=== PATIENT | male | born 1960 | race Caucasian/White ===

== ENCOUNTER 2023-02-19 11:15 | Outpatient (REF) | payer OTHER, SELFPAY ==
[2023-02-19 14:13] LABS: Hematocrit 45.3 % (42.0-52.0); Mean Corpuscular HGB Conc 33.1 g/dl (31.0-36.0); Mean Corpuscular Hemoglobin 30.3 pg (27.0-33.0); Mean Corpuscular Volume 91.5 fL (80.0-98.0); Mean Platelet Volume 9.3 fL (9.4-12.4); Platelet Count 279 X10*3/uL (160-400); Red Blood Count 4.95 X10*6/uL (4.60-5.80); Red Cell Distribution Width 13.2 % (11.0-16.0); White Blood Count 6.1 X10*3/uL (4.8-10.8)
[2023-02-19 14:31] LABS: Alanine Aminotransferase 14 U/L (0-40); Albumin Level 4.2 g/dL (3.5-5.0); Alkaline Phosphatase 57 U/L (39-117); Anion Gap 10 (12-20); Aspartate Amino Transferase 22 U/L (5-37); Bilirubin Total 2.2 mg/dL (0.0-1.0); Blood Urea Nitrogen 16 mg/dL (9-16); Calcium 8.9 mg/dL (8.4-10.2); Carbon Dioxide 29 mmol/L (22-29); Chloride 104 mmol/L (96-108); Cholesterol 213 mg/dL; Estimated Glomerular Filt Rate > 60; Glucose Fasting 85 mg/dL (60-99); HDL Cholesterol 41 mg/dL; LDL Cholesterol Calculated 154 mg/dl; Potassium 4.4 mmol/L (3.3-5.1); Sodium 139 mmol/L (135-145); Triglycerides 94 mg/dL
[2023-02-19 14:48] LABS: TSH reflex Free T4 1.94 uIU/mL (0.32-4.0)
[2023-02-23 17:44] LABS: PSA, Ultra Sensitive 0.24 ng/mL
== END 2023-02-19 11:16 | disposition home or self-care (01) ==
LOC: HO.HMGCLDS 11:15
PROVIDERS: PCP Nurse Practitioner Family; Visit Provider Nurse Practitioner Family
DX: Z00.00 Encounter for general adult medical examination without abnormal findings (principal); Z12.5 Encounter for screening for malignant neoplasm of prostate
CPT/HCPCS: 36415; 80053; 80061; 84153; 84443; 85027

== ENCOUNTER 2023-03-11 17:00 | Outpatient (RCR) | payer OTHER, SELFPAY ==
--- NOTE | 2023-02-11 17:22 | MHC.PT.EP ---
[facility] [place] [facility] [place] [facility] [place] Office [address] Michael Malone [address] [phone] F: [phone] F: [phone] F: [phone] F: [phone] Physical Therapy Plan of Care Date of Evaluation: Date of Surgery: n/a Diagnosis: L shoulder pain (chronic) Assessment: Patient is a 62 year old male presenting to PT with complaints of pain in his L shoulder. Pt reports onset of pain began about 5 years ago due to insidious onset. He presents today with impairments in pain, shoulder ROM, shoulder strength, posture, and periscap strength. 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 Pt expresses fpc goal of reducing pain, and is motivated to work towards this in PT. Clinical presentation today is most consistent with signs and sx associated with chronic L shoulder pain and pt will benefit from skilled PT 2 week x 5 weeks to address the following problems and impairments noted upon evaluation: pain, shoulder ROM, shoulder strength, posture, and periscap strength. These problems limit the patient with the following functional activities: reaching OH, lifting OH, sleeping on L, and reaching behind the head. The prescribed treatment plan of care is medically necessary. Co-morbidities of none were identified and taken into considerations of plan of care. Pt was educated on HEP, role of PT, prognosis, POC. Frequency and Duration: The patient will be seen 2 x week x 5 weeks Short Term Goals: Pt will demonstrate pain free L shoulder AROM in 3 weeks to pain free in available range. Pt will demonstrate improved L shoulder MMT strength by 1/3 grade in 3 weeks. Pt will demonstrate improved postural awareness by sitting with biomechanically correct posture without cues throughout session to improve overall postural function in 3 weeks. Nursing Home Goals: Pt will demonstrate improved SPADI score by 13 points in 5 weeks for improved functional mobility. Pt will demonstrate ability to lift 5# OH with minimal pain and no cramping in 5 weeks for return to PLOF. Pt will demonstrate ability to complete all research pharmacist and yardwork with min to no pain or limitation in 5 weeks for return to PLOF. Treatment Plan: Modalities to reduce pain, spasms and effusion. Manual therapy to restore motion and function. Therapeutic exercise to improve strength and flexibility. Neuromuscular re-education for posture and balance. Therapeutic activities to return to functional activities of daily living. Electronically signed by: Ynes Chapa, PT, DPT, ATC Please sign and return to therapist. Thank you for your referral.
--- NOTE | 2023-03-26 13:14 | MHC.PT.DC ---
[facility] [place] Office [place] Office [place] Office [address] Michael Malone [address] [phone] F: [phone] F: [phone] F: [phone] F: [phone] Physical Therapy Discharge Report Diagnosis: L shoulder pain (chronic) Date of Surgery: n/a Date of Evaluation: 02/11/23 Date of Discharge: 03/26/23 Treatments to Date: 7 Cancellations to Date: 4 No Shows to Date: 0 Discharge Status: Patient Elected to Stop Discharge Summary: Pt cancelled his remaining appts. Plan was to d/c anyway at the end of the scheduled visits. Electronically signed by: Ynes Chapa, PT, DPT, ATC Please sign and return to therapist. Thank you for your referral.
== END 2023-03-26 13:14 | disposition home or self-care (01) ==
LOC: HO.PTCHIC 17:00
PROVIDERS: PCP Nurse Practitioner Family; Visit Provider Nurse Practitioner Family
DX: M25.512 Pain in left shoulder (principal)
CPT/HCPCS: 97110; 97140; 97161